=== PATIENT | female | born 1960 | race African-American/Black ===

== ENCOUNTER 2024-02-03 10:52 | Emergency (ER) | payer MEDICAID, OTHER ==
[~2024-02-03] VITALS: Ht 162.6 cm; Wt 100.7 kg
[~2024-02-03 10:52] MED LIST: AMLO10TA80 MT; CLON0.1T PO; KEPP500 MT; LISI20TA31 MT
[2024-02-03 11:14] VITALS: O2SAT 98
[2024-02-03 12:20] LABS: BASOPHILS % 0.8 % (0.0-2.0); EOSINOPHILS % 2.6 % (0.0-5.0); HEMOGLOBIN. 12.1 g/dL (12.0-16.0); LYMPHOCYTES % 10.4 % (20.0-50.0); MEAN CORPUSCULAR HEMOGLOBIN 28.5 pg (28.0-32.0); MEAN CORPUSCULAR HGB CONC 33.7 g/dL (31.0-37.0); MEAN CORPUSCULAR VOLUME 84.5 fL (81.0-99.0); MONOCYTES % 5.4 % (2.0-8.0); NEUTROPHILS % 80.8 % (40.0-76.0); PLATELET 403 x1000/uL (130-400); RED BLOOD CELL COUNT 4.26 mill/uL (4.2-5.4); RED CELL DISTRIBUTION WIDTH 13.7 % (11.6-14.6); WHITE BLOOD COUNT 9.2 x1000/uL (4.5-11.0)
[2024-02-03 12:27] LABS: CARBON DIOXIDE 26 mEq/L (21-32); CHLORIDE 109 mEq/L (98-107); SODIUM 140 mEq/L (136-145)
[2024-02-03 12:28] LABS: CALCIUM 9.7 mg/dL (8.7-10.4)
[2024-02-03 12:33] LABS: GLUCOSE 108 mg/dL (70-105); UREA NITROGEN BLOOD 11 mg/dL (9-23)
[2024-02-03 13:27] LABS: CLARITY URINE CLOUDY (CLEAR); COLOR URINE YELLOW (YELLOW); GLUCOSE URINE NEGATIVE (NEGATIVE); KETONES URINE NEGATIVE (NEGATIVE); LEUKOCYTE ESTERASE URINE 2+ (NEGATIVE); NITRITE URINE NEGATIVE (NEGATIVE); OCCULT BLOOD URINE NEGATIVE (NEGATIVE); PH URINE 6.5 (4.5-8.0); PROTEIN URINE NEGATIVE (NEGATIVE); SPECIFIC GRAVITY URINE 1.007 (1.005-1.030); UROBILINOGEN URINE 0.2 E.U./dL (0.2-1.0)
[2024-02-03 13:45] LABS: BACTERIA URINE 1+; YEAST URINE NONE SEEN
[2024-02-03 13:46] LABS: SQUAMOUS EPITHELIAL CELL URINE 2+ /lpf (RARE/1+)
[2024-02-03] MEDS ORDERED: NITR100C MT (14:07)
[2024-02-03] MEDS ORDERED: ACET-2708 PO (14:07)
[2024-02-03 14:17] VITALS: BP 156/77; PULSE 85; RESP 16; TEMP 98
== END 2024-02-03 14:17 | disposition home or self-care (01) ==
LOC: ER 10:52
DX: R51.9 Headache, unspecified (principal); N39.0 Urinary tract infection, site not specified; I10 Essential (primary) hypertension; Z86.73 Personal history of transient ischemic attack (TIA), and cerebral infarction without residual deficits
CPT/HCPCS: 36415; 80048; 81003; 85025; 99283